=== PATIENT | female | born 1985 | race Caucasian/White ===

== ENCOUNTER 2018-03-17 07:23 | Emergency (ER) | payer MEDICAID ==
[~2018-03-17] VITALS: Ht 167.6 cm; Wt 90.9 kg
[2018-03-17 07:29] VITALS: Ht 167.6 cm; Wt 90.9 kg
[2018-03-17 08:15] LABS: BASOPHILS 0.1 % (0-2); EOSINOPHILS 0.2 % (0-7); HEMATOCRIT 32.1 % (36.0-48.0); IMMATURE GRANULOCYTES 0.2 % (0-5); LYMPHOCYTES 7.4 % (15-50); MCH 31.5 pg (26.0-34.0); MCHC 34.3 g/dL (31.0-37.0); MEAN PLATELET VOLUME 11.1 fL (7.4-10.4); MONOCYTES 5.6 % (2-11); NEUTROPHILS 86.5 % (40-80); PLATELET COUNT 202 10x3/uL (130-400); RBC 3.49 10x6/uL (4.00-5.40); RDW 13.6 % (11.5-14.5); WBC 13.2 10x3/uL (4.8-10.8)
[2018-03-17 08:26] LABS: INR 1.02 (0.85-1.17); PROTIME 12.9 SECONDS (11.6-15.0)
[2018-03-17 08:29] LABS: ALKALINE PHOSPHATASE 23 U/L (46-116); ALT (SGPT) 23 U/L (10-68); BILIRUBIN - TOTAL 0.37 mg/dL (0.2-1.3); CALC OSMOLALITY 273 mosm/kg (275-300); CALCIUM 8.4 mg/dL (8.5-10.1); CARBON DIOXIDE 20.1 mmol/L (21.0-32.0); CHLORIDE - SERUM 104 mmol/L (98-107); CREATININE - SERUM 0.6 mg/dL (0.6-1.3); GLUCOSE 98 mg/dL (74-106); POTASSIUM - SERUM 3.6 mmol/L (3.5-5.1); PROTEIN - SERUM 6.8 g/dL (6.4-8.2); SODIUM 137 mmol/L (136-145); UREA NITROGEN 12 mg/dL (7-18); eGFR NON AFRICAN AMERICAN > 90 mL/min (90-120)
[2018-03-17 08:30] LABS: HCG SERUM POSITIVE (NEGATIVE)
[2018-03-17 08:35] VITALS: BP 132/74
[2018-03-17 08:47] LABS: CREATINE KINASE 575 UL (21-215)
[2018-03-17 08:49] LABS: APPEARANCE HAZY (CLEAR); BILIRUBIN NEGATIVE (NEGATIVE); COLOR YELLOW (YELLOW); GLUCOSE NEGATIVE (NEGATIVE); KETONE MODERATE mg/dL (NEGATIVE); NITRITE NEGATIVE (NEGATIVE); PROTEIN NEGATIVE (NEGATIVE); SPECIFIC GRAVITY 1.015 (1.005-1.020); UROBILINOGEN NORMAL (NORMAL)
[2018-03-17 08:50] LABS: CKMB 5.8 U/L (0.0-3.6)
[2018-03-17] MEDS ORDERED: TORADOL10 MG PO (15:22)
== END 2018-03-17 08:56 | disposition left against medical advice (07) ==
LOC: D.ER 07:23
PROVIDERS: Family Medicine
DX: S01.01XA Laceration without foreign body of scalp, initial encounter (principal); Y04.2XXA Assault by strike against or bumped into by another person, initial encounter; Y93.89 Activity, other specified; Y92.019 Unspecified place in single-family (private) house as the place of occurrence of the external cause; S50.02XA Contusion of left elbow, initial encounter; S80.12XA Contusion of left lower leg, initial encounter; O26.891 Other specified pregnancy related conditions, first trimester; Z3A.01 Less than 8 weeks gestation of pregnancy

== ENCOUNTER 2018-03-17 11:18 | Emergency (ER) | payer MEDICAID ==
[~2018-03-17] VITALS: Ht 167.6 cm; Wt 90.9 kg
[2018-03-17 11:43] VITALS: Ht 167.6 cm; Wt 90.9 kg
[2018-03-17] MEDS ORDERED: TORADOL10 MG PO (15:22)
[2018-03-17 15:30] VITALS: BP 109/65
== END 2018-03-17 15:30 | disposition home or self-care (01) ==
LOC: D.ER 11:18
DX: S01.01XD Laceration without foreign body of scalp, subsequent encounter (principal); Y04.2XXD Assault by strike against or bumped into by another person, subsequent encounter; S50.02XA Contusion of left elbow, initial encounter; S80.12XA Contusion of left lower leg, initial encounter

== ENCOUNTER 2018-03-25 14:08 | Emergency (ER) | payer MEDICAID ==
[~2018-03-25] VITALS: Ht 167.6 cm; Wt 90.9 kg
[~2018-03-25 14:08] MED LIST: TORADOL10 MG PO
[2018-03-25 14:15] VITALS: BP 117/74; Ht 167.6 cm; Wt 90.9 kg
== END 2018-03-25 14:25 | disposition home or self-care (01) ==
LOC: D.ER 14:08
DX: S01.01XD Laceration without foreign body of scalp, subsequent encounter (principal); X58.XXXD Exposure to other specified factors, subsequent encounter; Z48.02 Encounter for removal of sutures

== ENCOUNTER 2018-07-08 17:45 | Observation (INO) | payer MEDICAID ==
[~2018-07-08] VITALS: Ht 167.6 cm; Wt 109.1 kg
[2018-07-08 17:51] VITALS: Ht 167.6 cm; Wt 109.1 kg
[2018-07-08] MEDS ORDERED: PRENAVITE1 TAB PO (17:57)
[2018-07-08 18:58] LABS: BASOPHILS 0.2 % (0-2); EOSINOPHILS 0.5 % (0-7); HEMATOCRIT 26.2 % (36.0-48.0); HEMOGLOBIN 8.9 g/dL (12-16); IMMATURE GRANULOCYTES 0.2 % (0-5); LYMPHOCYTES 8.4 % (15-50); MCH 28.8 pg (26.0-34.0); MCV 84.8 fL (80.0-100.0); MEAN PLATELET VOLUME 11.5 fL (7.4-10.4); MONOCYTES 9.3 % (2-11); NEUTROPHILS 81.4 % (40-80); PLATELET COUNT 173 10x3/uL (130-400); RBC 3.09 10x6/uL (4.00-5.40); RDW 14.9 % (11.5-14.5); WBC 6.7 10x3/uL (4.8-10.8)
--- NOTE | 2018-07-08 19:10 | NUR ---
REPORT TO ARRON FENG.
[2018-07-08 19:26] LABS: ALBUMIN 2.4 g/dL (3.4-5.0); ALKALINE PHOSPHATASE 83 U/L (46-116); ALT (SGPT) 36 U/L (10-68); BILIRUBIN - TOTAL 0.23 mg/dL (0.2-1.3); CALC OSMOLALITY 273 mosm/kg (275-300); CALCIUM 8.4 mg/dL (8.5-10.1); CARBON DIOXIDE 19.5 mmol/L (21.0-32.0); CHLORIDE - SERUM 105 mmol/L (98-107); CREATININE - SERUM 0.6 mg/dL (0.6-1.3); GLUCOSE 92 mg/dL (74-106); PROTEIN - SERUM 6.1 g/dL (6.4-8.2); SODIUM 138 mmol/L (136-145); UREA NITROGEN 8 mg/dL (7-18); eGFR NON AFRICAN AMERICAN > 90 mL/min (90-120)
[2018-07-08 19:43] LABS: MAGNESIUM - SERUM 1.7 mg/dL (1.8-2.4)
[2018-07-08 19:47] LABS: CREATINE KINASE 999 UL (21-215)
[2018-07-08 19:48] LABS: CKMB 7.8 U/L (0.0-3.6)
[2018-07-08 20:24] LABS: APPEARANCE CLEAR (CLEAR); BILIRUBIN NEGATIVE (NEGATIVE); COLOR YELLOW (YELLOW); GLUCOSE NEGATIVE (NEGATIVE); KETONE NEGATIVE (NEGATIVE); NITRITE NEGATIVE (NEGATIVE); PROTEIN NEGATIVE (NEGATIVE); SPECIFIC GRAVITY 1.025 (1.005-1.020); UROBILINOGEN NORMAL (NORMAL)
[2018-07-08 20:34] LABS: UDS - AMPHET POSITIVE QUAL (NEGATIVE); UDS - BARB NEGATIVE QUAL (NEGATIVE); UDS - BENZO NEGATIVE QUAL (NEGATIVE); UDS - COCAINE NEGATIVE QUAL (NEGATIVE); UDS - OPIATE NEGATIVE QUAL (NEGATIVE); UDS - PCP NEGATIVE QUAL (NEGATIVE); UDS - THC NEGATIVE QUAL (NEGATIVE)
[2018-07-08 21:21] VITALS: BP 108/60
--- NOTE | 2018-07-08 23:30 | NUR ---
REFUSES TO ANSWER QUESTIONS REGARDING PMH AND ADMISSION ASSESSMENT QUESTIONS AT THIS TIME. SEE [employer] FOR ADDITIONAL DOCUMENTATION.
[2018-07-09 07:33] LABS: BASOPHILS 0.2 % (0-2); EOSINOPHILS 0.2 % (0-7); HEMATOCRIT 25.8 % (36.0-48.0); HEMOGLOBIN 8.5 g/dL (12-16); IMMATURE GRANULOCYTES 0.5 % (0-5); LYMPHOCYTES 6.6 % (15-50); MCH 28.1 pg (26.0-34.0); MCHC 32.9 g/dL (31.0-37.0); MCV 85.4 fL (80.0-100.0); MEAN PLATELET VOLUME 11.7 fL (7.4-10.4); MONOCYTES 7.9 % (2-11); NEUTROPHILS 84.6 % (40-80); PLATELET COUNT 153 10x3/uL (130-400); RBC 3.02 10x6/uL (4.00-5.40); RDW 14.9 % (11.5-14.5); WBC 5.6 10x3/uL (4.8-10.8)
[2018-07-09 07:51] LABS: ALBUMIN 2.2 g/dL (3.4-5.0); ALKALINE PHOSPHATASE 84 U/L (46-116); ALT (SGPT) 32 U/L (10-68); BILIRUBIN - TOTAL 0.16 mg/dL (0.2-1.3); CALC OSMOLALITY 269 mosm/kg (275-300); CALCIUM 7.9 mg/dL (8.5-10.1); CARBON DIOXIDE 20.4 mmol/L (21.0-32.0); CHLORIDE - SERUM 105 mmol/L (98-107); CREATININE - SERUM 0.5 mg/dL (0.6-1.3); GLUCOSE 101 mg/dL (74-106); POTASSIUM - SERUM 3.3 mmol/L (3.5-5.1); PROTEIN - SERUM 5.7 g/dL (6.4-8.2); SODIUM 136 mmol/L (136-145); UREA NITROGEN 6 mg/dL (7-18); eGFR NON AFRICAN AMERICAN > 90 mL/min (90-120)
[2018-07-09 08:51] LABS: CREATINE KINASE 664 UL (21-215)
[2018-07-09 08:52] LABS: CKMB 4.6 U/L (0.0-3.6)
[2018-07-10 07:19] LABS: RAPID PLASMA REAGIN Non Reactive (Non Reactive)
[2018-07-10 10:10] LABS: HEPATITIS C ANTIBODY <0.1 (0.0-0.9)
--- NOTE | 2018-07-10 16:03 | MORECARE ---
CASE MANAGEMENT DISCHARGE SUMMARY PATIENT: GLADIS BOBO UNIT: [id number] ADM DATE: 07/08/18 AGE: 33 : 89 SEX: F ROOM/BED: D.1278 AUTHOR: JOSEPH MANCILLA PHYSICIAN: REFERRING PHYSICIAN: WILNER DONIS MD DATE OF SERVICE: 07/10/18 Discharge Plan Patient Name: GLADIS BOBO [facility] : 1985 Planned Disposition: Anticipated Discharge Date: Discharge Date: 07/09/2018 Expected LOS: Initial Reviewer: [email or web address] Initial Review Date: 07/08/2018 Generated: 07/10/18 5:03 pm Comments DCP- Discharge Planning Updated by [email or web address]: Shruthi Johnson on 07/09/18 1:[address] CM SPOKE WITH THE PRIMARY NURSE. SHE STATED THE DOCTOR HAS SPOKEN DIRECTLY TO THE NURSES. THE PATIENT DID NOT WANT TO RECEIVE ANY INFORMATION. PATIENT REFUSES ANY INFORMATION. STRONGLY DECLINES. SHE WILL BE PROVIDED WITH ISABEL'S CARD WITH HER DISCHARGE PAPERWORK. IT HAS THE 800 PHONE NUMBERS FOR DOMESTIC VIOLENCE ASSISTANCE, CHILD AND INFANT ABUSE [facility] POLICE , WOMEN AND CHILDREN [facility] AND [facility]. Patient Name: GLADIS BOBO Page [phone] at 1603 All edits/amendments must be made on the electronic document DICTATION DATE: 07/10/18 160 COSMETICS COUNTER MANAGER: BAM 07/10/18 1603 RPT#: [id number] DC DATE:07/09/18 STATUS: DIS IN [facility] [address] [place] [address] END OF REPORT
== END 2018-07-09 14:55 | disposition home or self-care (01) ==
LOC: D.ER 17:45 → OBSVTIME 20:25 → D.LD 20:25
PROVIDERS: Family Medicine; ADMIT Obstetrics & Gynecology; ATTEND Obstetrics & Gynecology
DX: O99.323 Drug use complicating pregnancy, third trimester (principal); M62.82 Rhabdomyolysis; Z3A.34 34 weeks gestation of pregnancy; O26.893 Other specified pregnancy related conditions, third trimester

== ENCOUNTER 2018-08-31 13:36 | Inpatient (IN) | payer MEDICAID ==
[~2018-08-31] VITALS: Ht 167.6 cm; Wt 131.1 kg
[~2018-08-31 13:36] MED LIST changes: +PRENAVITE1 TAB PO
[2018-08-31 14:09] VITALS: Ht 167.6 cm; Wt 131.1 kg
[2018-08-31 14:43] LABS: HEMATOCRIT 31.1 % (36.0-48.0); HEMOGLOBIN 10.2 g/dL (12-16); MCH 27.6 pg (26.0-34.0); MCHC 32.8 g/dL (31.0-37.0); MCV 84.3 fL (80.0-100.0); MEAN PLATELET VOLUME 12.7 fL (7.4-10.4); RBC 3.69 10x6/uL (4.00-5.40); RDW 17.4 % (11.5-14.5); WBC 6.6 10x3/uL (4.8-10.8)
[2018-08-31 21:15] LABS: UDS - AMPHET NEGATIVE QUAL (NEGATIVE); UDS - BARB NEGATIVE QUAL (NEGATIVE); UDS - BENZO NEGATIVE QUAL (NEGATIVE); UDS - COCAINE NEGATIVE QUAL (NEGATIVE); UDS - OPIATE NEGATIVE QUAL (NEGATIVE); UDS - PCP NEGATIVE QUAL (NEGATIVE); UDS - THC NEGATIVE QUAL (NEGATIVE)
--- NOTE | 2018-09-01 03:37 | NUR ---
pt medicated for sharp pain at this time. with motrin. will continue to monitor. paris rain rn
[2018-09-01 06:50] LABS: BASOPHILS 0.1 % (0-2); EOSINOPHILS 0.1 % (0-7); HEMATOCRIT 29.9 % (36.0-48.0); HEMOGLOBIN 9.7 g/dL (12-16); IMMATURE GRANULOCYTES 0.3 % (0-5); LYMPHOCYTES 10.6 % (15-50); MCH 28.3 pg (26.0-34.0); MCHC 32.4 g/dL (31.0-37.0); MEAN PLATELET VOLUME 13.1 fL (7.4-10.4); MONOCYTES 8.6 % (2-11); NEUTROPHILS 80.3 % (40-80); RBC 3.43 10x6/uL (4.00-5.40); RDW 17.8 % (11.5-14.5)
[2018-09-01 06:53] LABS: MCV 87.2 fL (80.0-100.0); PLATELET COUNT 184 10x3/uL (130-400); WBC 13.3 10x3/uL (4.8-10.8)
[2018-09-01 07:14] LABS: RAPID PLASMA REAGIN Non Reactive (Non Reactive)
--- NOTE | 2018-09-01 07:55 | NUR ---
PT CALLS OUT WITH REQUEST FOR PAIN MED, ORDERS CHECKED. PT UNDERSTANDS MEDS ORDERED FOR PAIN RELIEF AND IS AGREEABLE TO TAKING TYLENOL NOW. RATES PAIN/CRAMPING AT 4/10. MEDS GIVEN SCANNED TO EMAR. IN CRIB AT BEDSIDE. SIDE RAILS UP X 2 AND CALL LIGHT IN REACH.
[2018-09-01 08:12] VITALS: BP 140/72
--- NOTE | 2018-09-01 08:12 | NUR ---
RECEIVED PT SITTING UP IN BED. AWAKE. AAO X 3. VSS. HRRR WITHOUT AUDIBLE MURMUR. BBS CLEAR. BS X 4. ABDOMEN SOFT/NON-DISTENDED. FUNDUS FIRM AT U/1. RUBRA LOCHIA MOD AMT. NO CLOTS NOTED. PERINEUM WITH SLIGHT EDEMA NOTED. NEG HOMANS' SIGN. PPP. NO EDEMA NOTED TO BLE. SL SITE CLEAR. PT STATES PAIN MED NOT RELIEVING PAIN. WILL NOTIFY DR DONIS. PT OOB AND TRANSFERED VIA AMBULATORY TO ROOM 1276. PT TO BED. ORIENTED TO ROOM, BED, AND CALL LIGHT. SR UP X 2. CALL LIGHT IN REACH.
--- NOTE | 2018-09-01 09:15 | NUR ---
DR DONIS CALLS. NOTIFIED OF PT C/O PAIN. ORDERS RECEIVED.
--- NOTE | 2018-09-01 09:47 | NUR ---
PT SLEEPING ON ENTERING ROOM. PT WAKES UPON VERBAL STIMULATION. PT STATES ABDOMINAL CRAMPING OF "8" ON 0-10 PAIN SCALE. TORADOL 10 MG GIVEN PO ORDERED. PT ALSO GIVEN NICOTINE PATCH-PLACED ON RIGHT OUTER ARM.
--- NOTE | 2018-09-01 11:00 | NUR ---
PT LYIING TO LEFT SIDE IN BED. EYES CLOSED. RESP NON-LABORED. PT NOT DISTURBED TO ALLOW FOR REST. SR UP X 2. CALL LIGHT IN REACH.
--- NOTE | 2018-09-01 12:30 | NUR ---
PT SITTING UP IN BED. CONSUMING LUNCH TRAY. DENIES NEEDS OR C/O.
--- NOTE | 2018-09-01 14:00 | NUR ---
PT REQUESTS AND RECEIVES 2 [place] SODAS. DENIES C/O.
--- NOTE | 2018-09-01 14:32 | MORECARE ---
CASE MANAGEMENT DISCHARGE SUMMARY PATIENT: GLADIS BOBO UNIT: [id number] ADM DATE: 08/31/18 AGE: 33 : 87 SEX: F ROOM/BED: D.1276 AUTHOR: LAURENT,DOC PHYSICIAN: REFERRING PHYSICIAN: DAMI DONIS MD DATE OF SERVICE: 09/01/18 Discharge Plan Patient Name: GLADIS BOBO Facility: [facility]:[place] : 1985 Planned Disposition: Home Anticipated Discharge Date: Discharge Date: Expected LOS: Initial Reviewer: [email or web address] Initial Review Date: 09/01/2018 Generated: 09/01/18 3:32 pm Comments DCP- Discharge Planning Updated by [email or web address]: Ave Fleming on 09/01/18 1:[address] Patient Name: GLADIS BOBO Admission Status: Elective Accout number: [id number] Admission Date: 08-31-2018 : 1985 Admission Diagnosis: Attending: Dami Donis Current LOS: 1 Anticipated DC Date: Planned Disposition: Primary Insurance: MEDICAID [place] Discharge Planning Comments: CM MET WITH PATIENT AND SHE STATES SHE DOES NOT HAVE AN CAR SEAT AND NEEDS HELP GETTING ONE. I CALLED [facility]O [facility] PHONE NUMBER [phone]. HE BROUGHT A NEW INFANT CAR SEAT TO THE HOSPITAL AND I TOOK IT TO THE PATIENT. SHE IS BREASTFEADING AT THIS TIME. PATIENT PLEASANT AND ANSWERS QUESTIONS APPROPRIATLY. CM TO FOLLOW AND ASSIST WITH DC PLANNING/NEEDS. Cigar Packer And Grader: Ave Fleming DCPIA - Discharge Planning Initial Assessment Updated by [email or web address]: Ave Fleming on 09/01/18 2:29 pm * Is the patient Alert and Oriented? Yes * PCP NONE * Preadmission Environment Home with Family * ADLs Independent * List name and contact numbers for known caregivers / representatives who currently or will assist patient after discharge: JESUS OBRIEN, FATHER, * Community resources currently utilized None * Additional services required to return to the preadmission environment? No * Can the patient safely return to the preadmission environment? Yes * Has this patient been hospitalized within the prior 30 days at any hospital? No Patient Name: GLADIS BOBO Page [phone] at 1432 All edits/amendments must be made on the electronic document DICTATION DATE: 09/01/181431 DIRECTOR OF INSTITUTIONAL RESEARCH: BAM 09/01/181431 RPT#: [id number] DC DATE: STATUS: ADM IN [facility] [address] [place] [address] END OF REPORT
--- NOTE | 2018-09-01 15:29 | NUR ---
TYLENOL 1000 MG AND TORADOL 10 MG GIVEN PO ORDERED. PT INSTRUCTED ON MEDS. VERBALIZES UNDERSTANDING. VSS. DENIES HEAVY BLEEDING OR PASSING CLOTS.
[2018-09-01 15:32] VITALS: BP 132/83
--- NOTE | 2018-09-01 15:50 | NUR ---
PT AMBULATORY IN HALLS WITH . DENIES PAIN OR NEEDS.
--- NOTE | 2018-09-01 17:30 | NUR ---
PT SITTING UP IN BED. VISITS WITH FAMILY. DENIES C/O OR NEEDS.
--- NOTE | 2018-09-01 18:15 | NUR ---
PT SITTING UP IN BED. VISITS WITH FAMILY. DENIES C/O OR NEEDS.
--- NOTE | 2018-09-01 19:00 | NUR ---
REPORT RECEIVED FROM CARMEN HELLER. NO REPORTS OF DISTRESS RECEIVED.
--- NOTE | 2018-09-01 19:50 | NUR ---
PATIENT SITTING UP IN BED WITH AT BEDSIDE. IS LYING IN OPEN CRIB NEXT TO THE BED. ASSESSMENT AND VITAL SIGNS DONE AT THIS TIME. PATIENT STATES PAIN A 4 OUT OF 10. RESPIRATIONS AT EASE. LUNG SOUNDS CLEAR IN ALL BALLESTEROS. HEART REGULAR RATE AND RHYTHM. ABDOMEN SOFT AND NONTENDER. BOWEL SOUNDS PRESENT IN ALL QUADRANTS. FUNDUS FIRM, 2 BELOW UMBILICUS. LOCHIA RUBRA AND SCANT. +1 EDEMA NOTED IN BLE. PATIENT C/O PAIN AT IV SITE. SL DISCONTINUED. PATIENT STATES UNDERSTANDING OF NEED TO RESITE IF IV ACCESS IS NEEDED. PATIENT DENIES ANY NEEDS OR CONCERNS. BED IN LOWEST POSITION, SIDE RAILS UP X 2, C/L AND WATER WITHIN REACH.
[2018-09-01 19:51] VITALS: BP 129/70
--- NOTE | 2018-09-01 21:00 | NUR ---
PATIENT LYING QUIETLY IN BED WITH EYES CLOSED. RESPIRATIONS AT EASE. EASILY AROUSED. DENIES ANY NEEDS. BED IN LOWEST POSITION, SIDE RAILS UP X 2, C/L AND WATER WITHIN REACH.
--- NOTE | 2018-09-01 22:30 | NUR ---
PATIENT SITTING UP IN BED INFANT. DENIES ANY NEEDS OR CONCERNS AT THIS TIME. NO SIGNS OF DISTRESS NOTED. BED IN LOWEST POSITION, SIDE RAILS UP X 2, C/L AND WATER WITHIN REACH.
--- NOTE | 2018-09-01 23:50 | NUR ---
PATIENT SITTING UP IN BED HOLDING . INFANT TO NURSERY TRANSFERRED VIA OPEN CRIB. PATIENT DENIES ANY NEEDS OR CONCERNS. BED IN LOWEST POSITION, SIDE RAILS UP X 2, C/L AND WATER WITHIN REACH.
--- NOTE | 2018-09-02 01:30 | NUR ---
MOTHER LYING QUIETLY IN BED WITH EYES CLOSED. EASILY AROUSED. TO ROOM WITH MOTHER. ID BANDS MATCHED. PATIENT DENIES ANY NEEDS OR CONCERS. NO SIGNS OF DISTRESS NOTED. BED IN LOWEST POSITION, SIDE RAILS UP X 2, C/L AND WATER WITHIN REACH.
--- NOTE | 2018-09-02 03:42 | NUR ---
PATIENT LYING IN BED WITH EYES CLOSED. EASILY AROUSED. SCHEDULED TYLENOL 1000 MG ADMINISTERED PO AND SCHEDULED TORADOL 10 MG ADMINISTERED PO. ASKED MOTHER HOW BREAST FED AND MOTHER STATES SHE HAS NOT FED SINCE 2329 FEEDING. MOTHER ENCOURAGED TO FEED . HANDED TO MOTHER. MOTHER DENIES ANY FURTHER NEEDS. BED IN LOWEST POSTION, SIDE RAILS UP X 2, C/L AND WATER WITHIN REACH.
--- NOTE | 2018-09-02 05:00 | NUR ---
PATIENT SITTING UP IN BED HOLDING . STATE INFANT BREASTFED FOR 13 MINUTES THIS PAST FEEDING. REQUESTS FOR INFANT TO GO TO NURSERY. DENIES ANY FURTHER NEEDS. BED IN LOWEST POSITION, SIDE RAILS UP X 2, C/L AND WATER WITHIN REACH. TRANSFERRED TO NURSERY VIA OPEN CRIB.
--- NOTE | 2018-09-02 06:20 | NUR ---
PATIENT LYING IN BED WITH EYES CLOSED. EASILY AROUSED. TO ROOM WITH MOTHER. ID BANDS MATCHED TO MAINTAIN SECURITY. INFANT HANDED TO MOTHER. MOTHER ENCOURAGED TO FEED INFANT. DENIES ANY NEEDS OR CONCERNS. BED IN LOWEST POSITION, SIDE RAILS UP X 2, C/L AND WATER WITHIN REACH.
[2018-09-02 07:59] VITALS: BP 132/63
--- NOTE | 2018-09-02 08:03 | NUR ---
RECEIVED PT SITTING UP IN BED. WATCHES TV. VSS. HRRR WITHOUT AUDIBLE MURMUR. BBS CLEAR. BS X 4. ABDOMEN SOFT/NON-DISTENDED. FUNDUS FIRM AT U/1. RUBRA LOCHIA SMALL AMT. NO CLOTS OR HEAVY BLEEDING PER PT STATES. NEG HOMANS' SIGN. PPP. MILD NON-PITTING EDEMA NOTED TO BLE. PT DENIES NEEDS OR C/O. SR UP X2. CALL LIGHT IN REACH.
--- NOTE | 2018-09-02 10:53 | NUR ---
PT LYING TO LEFT SIDE IN BED. WAKES UPON VERBAL STIMULATION. C/O ABDOMINAL CRAMPING OF "3" ON 0-10 PAIN SCALE. SCHEDULED MEDS GIVEN ORDERED.
--- NOTE | 2018-09-02 12:15 | NUR ---
REPORT FROM ÁNGEL DAS RN
--- NOTE | 2018-09-02 12:48 | NUR ---
PT AMB IN [place] WITH FOB AT SIDE TO TAKE INFANT BACK TO [facility], PT REQUESTS TO TAKE A WALK, INFORMED PT THAT THERE IS GOING TO BE A DELIVERY AND THAT THE INFANT NEEDED TO STAY IN ROOM AT THIS TIME, PT VERBALIZES UNDERSTANDING, INFORMED PT THAT I WILL BE IN THERE SHORTLY TO DO VS
[2018-09-02 13:10] VITALS: BP 143/64
--- NOTE | 2018-09-02 13:15 | NUR ---
PT AT THIS TIME, VS OBTAINED, POC DISCUSSED WITH PT REGARDING POSSIBILITY OF ROOMING IN, PT STATES "THAT SOUNDS PRETTY GOOD TO ME", VERBALIZES UNDERSTANDING, ALL QUESTIONS ANSWERED, FOB AT BEDSIDE
--- NOTE | 2018-09-02 14:21 | NUR ---
PT AND FOB LAYING IN BED WATCHING TV, IN OPEN CRIB CART AT BEDSIDE, DENIES NEEDS OR PAIN AT THIS TIME
--- NOTE | 2018-09-02 15:49 | NUR ---
DR DONIS CALLS UNIT, SPOKE TO ÁNGEL DAS RN, SHE REPORTS TO ME THAT DR DONIS ORDERED FOR PT TO BE DISCHARGED AND CAN ROOM IN
--- NOTE | 2018-09-02 16:32 | NUR ---
PT INFANT AT THIS TIME, INFORMED PT THAT I RECEIVED DISCHARGE ORDERS/ROOM IN FROM DR DONIS, PT VERBALIZES UNDERSTANDING, DENIES NEEDS AT THIS TIME, FOB LAYING IN BED WITH PT
--- NOTE | 2018-09-02 17:27 | NUR ---
PT AWAKE, ADM TYLENOL AND TORADOL PER MD ORDERS, SEE EMAR, INFORMED PT THAT I WILL BE RIGHT BACK WITH DISCHARGE PAPERWORK, PT VERBALIZES UNDERSTANDING, PT HOLDING INFANT AT THIS TIME, FOB ASLEEP ON COUCH
--- NOTE | 2018-09-02 17:50 | NUR ---
WENT OVER ALL DISCHARGE INSTRUCTIONS AND PAPERWORK, PT VERBALIZES UNDERSTANDING, DENIES QUESTIONS AT THIS TIME, INFANT TO [facility] AT THIS TIME
--- NOTE | 2018-09-02 18:00 | NUR ---
PT DISCHARGE VIA AMB TO ROOM 1223 FOR ROOM IN AT THIS TIME, PT OREINTED TO ROOM AND UNIT, EXTENSION NUMBERS WRITTEN ON BOARD, PT AND FOB SHOWN WHERE NSY IS, FOB SHOWN [facility], BED IN LOW POSITION, SIDE RAILS X 2, CALL LIGHT IN REACH FOR TV
== END 2018-09-02 18:00 | disposition home or self-care (01) | DRG 806 ==
LOC: D.LD 13:36
PROVIDERS: ADMIT Obstetrics & Gynecology; ATTEND Obstetrics & Gynecology
PROC: 10D07Z6 Extraction of Products of Conception, Vacuum, Via Natural or Artificial Opening (ICD-10-PCS; principal; 2018-09-01)
DX: O48.0 Post-term pregnancy (principal); O41.03X0 Oligohydramnios, third trimester, not applicable or unspecified; Z37.0 Single live birth; Z3A.42 42 weeks gestation of pregnancy; O99.334 Smoking (tobacco) complicating childbirth; O70.0 First degree perineal laceration during delivery

== ENCOUNTER 2020-07-20 20:38 | Emergency (ER) | payer MEDICAID ==
[~2020-07-20] VITALS: Ht 167.6 cm; Wt 90.7 kg
[2020-07-20 20:48] VITALS: BP 130/60; Ht 167.6 cm; Wt 90.7 kg
[2020-07-20] MEDS ORDERED: NAPROSYN500 MG PO (21:29)
[2020-07-20] MEDS ORDERED: HYDROCODON-ACE1 EAC7 PO (21:29)
== END 2020-07-20 21:42 | disposition home or self-care (01) ==
LOC: D.ER 20:38
DX: S52.601A Unspecified fracture of lower end of right ulna, initial encounter for closed fracture (principal); W01.198A Fall on same level from slipping, tripping and stumbling with subsequent striking against other object, initial encounter; Y93.9 Activity, unspecified; Y92.9 Unspecified place or not applicable

== ENCOUNTER 2020-08-14 07:06 | Day surgery (SDC) | payer OTHER ==
[~2020-08-14] VITALS: Ht 165.1 cm; Wt 81.6 kg
[~2020-08-14 07:06] MED LIST changes: +HYDROCODON-ACE1 EAC7 PO; +NAPROSYN500 MG PO
[2020-08-14] MEDS ORDERED: HYDROCODON-ACE1 EA10 PO (07:17)
[2020-08-14 07:20] LABS: HEMATOCRIT 34.3 % (36.0-48.0); HEMOGLOBIN 11.4 g/dL (12-16); MCH 27.7 pg (26.0-34.0); MCHC 33.2 g/dL (31.0-37.0); MCV 83.5 fL (80.0-100.0); MEAN PLATELET VOLUME 8.9 fL (7.4-10.4); RBC 4.11 10x6/uL (4.00-5.40); RDW 14.1 % (11.5-14.5); WBC 6.3 10x3/uL (4.8-10.8)
[2020-08-14 07:41] LABS: HCG SERUM NEGATIVE (NEGATIVE)
[2020-08-14 09:17] VITALS: BP 107/64; Ht 165.1 cm; Wt 81.6 kg
--- NOTE | 2020-08-14 12:17 | NUR ---
SCOPE PATCH BEHIND LEFT EAR ON ADMIT
--- NOTE | 2020-08-14 15:23 | NUR ---
1310 - IV D/C'D WITH TIP INTACT.
--- NOTE | 2020-08-14 15:23 | NUR ---
1350 - DISCHARGE INSTRUCTIONS COMPLETED. PATIENT DISCHARGED VIA WHEELCHAIR TO PRIVATE CAR.
--- NOTE | 2020-08-15 08:02 | OP ---
PATIENT NAME: GLADIS BOBO MEDICAL RECORD: [id number] :[birth year] LOCATION:[facility] ADMISSION DATE: SURGEON: DON MCKINNEY DO DATE OF OPERATION: 08/14/2020 PROCEDURE PERFORMED: Right ulna open reduction internal fixation. PREOPERATIVE DIAGNOSIS: Displaced right ulna shaft fracture. POSTOPERATIVE DIAGNOSIS: Displaced right ulna shaft fracture. INDICATIONS: Ms. Bobo is a 35-year-old female who broke her right ulna a couple of weeks ago, showed in my office and the x-rays were taken and started to have some angulation to it. I told her that it may continue to fall and we need to put a plate on it to keep it from doing that and warned her of the risks of this including infection, bleeding, damage to the ulnar nerve, continued pain, malunion, nonunion and need for further surgery, failure of implants and she signed a consent. SURGEON: Don Mckinney DO DESCRIPTION OF PROCEDURE: The patient received a block by anesthesia in the preoperative area, taken to the operative suite, laid in supine position, given 2 grams of Ancef preoperatively, sedated and LMA was placed. Right upper extremity had been prepped and draped in sterile fashion. Timeout was performed. I then marked out where the fracture was under fluoroscopy and then exsanguinated the right upper extremity with Esmarch, tourniquet was inflated to 250 mmHg, it was up for 28 minutes. I then made an incision on the ulnar border of the ulna and then made careful dissection down to the ulna and the fracture, cleaned the fracture site out, reduced the fracture, put a 6-hole Acumed plate on and put two compression screws in compression technique, this adjacent to the fracture distal and proximal, reducing the fracture nicely. I then put in locking screws distally and proximally and then 2 more screws in the oblong holes, 6 screws total. I then irrigated and let the tourniquet down coagulating any bleeding with pickup and Bovie. Jadon Rangel, exercise physiologist certified then closed the skin with 3-0 Vicryl in inverted interrupted fashion. I then placed Prineo glue on the skin and then dressed with Adaptic, 4 x 4s, cast padding, and a sugar-tong splint, wrapped with an Efrain wrap. She was awakened and taken to recovery in stable condition. BLOOD LOSS: Minimal. COMPLICATIONS: None. TRANSINT:[id number] Voice Confirmation ID: [id number] DOCUMENT ID: [id number] DON MCKINNEY DO at 0802 CC: [id number] DICTATION DATE: 08/14/20 1159 TABULATING CLERK: 08/14/20 1615 [facility] 08/14/20 [place] [id number]
== END 2020-08-14 13:50 | disposition home or self-care (01) ==
LOC: D.OPS 07:06
PROVIDERS: Anesthesiology; ATTEND Orthopaedic Surgery
DX: S52.201A Unspecified fracture of shaft of right ulna, initial encounter for closed fracture (principal); X58.XXXA Exposure to other specified factors, initial encounter